=== PATIENT | female | born 1975 | race Caucasian/White ===

== ENCOUNTER 2020-04-09 07:39 | Outpatient (CLI) | payer BC, SELFPAY ==
--- NOTE | ~2020-04-09 | MM_ITS ---
EXAMINATION: MM screening bryce BI w alvarado HISTORY: Screening TECHNIQUE: Craniocaudal and mediolateral oblique 3-D tomosynthesis images were obtained and synthetic 2-D images were generated. CAD analysis was submitted and interpreted. COMPARISON: Comparison to multiple prior studies sequentially, with oldest reviewed study dated 01/2018. BREAST PARENCHYMAL COMPOSITION: The breasts are extremely dense, which lowers the sensitivity of mamm ography. FINDINGS: There is a developing cluster of nonspecific calcifications mid outer aspect of the left br east. The right breast is stable without evidence for malignancy. IMPRESSION: 1. Developing cluster of nonspecific calcifications mid outer aspect of the right breast. 2. Magnification views are recommended. BI-RADS Category 0: Incomplete: Needs additional imaging evaluation. Reviewed, dictated and finalized at location A. IMPRESSION: 1. Developing cluster of nonspecific calcifications mid outer aspect of the rig ht breast. 2. Magnification views are recommended. BI-RADS Category 0: Incomplete: Needs additional imaging evaluation.
== END 2020-04-09 07:40 | disposition home or self-care (01) ==
PROVIDERS: PCP Physician Assistant; Visit Provider Nurse Practitioner
DX: Z12.31 Encounter for screening mammogram for malignant neoplasm of breast (principal); R92.8 Other abnormal and inconclusive findings on diagnostic imaging of breast
CPT/HCPCS: 77063; 77067

== ENCOUNTER → 2020-04-24 07:49 | Outpatient (CLI) | payer BC, SELFPAY ==
--- NOTE | ~2020-04-24 | MM_ITS ---
EXAMINATION: MM diagnostic mammo unilat LT HISTORY: Indeterminate left breast calcifications on screening mammogram TECHNIQUE: Additional images of the left breast were performed using full field digital mammography. CAD analysis was submitted and interpreted. COMPARISON: 04/09/2020, 03/22/2019, 08/12/2018, 02/11/2018, 02/03/2018 FINDINGS: There are grouped calcifications in the posterior third of the breast at the 4:00 location 6 cm from the nipple. The calcifications appear to be amorphous with some pleomorphism. IMPRESSION: 1. Suspicious left breast calcifications. 2. Stereotactic biopsy is recommended. BI-RADS category 4, suspicious findings. Reviewed, dictated and finalized at location A.
== END ==
PROVIDERS: PCP Physician Assistant; Visit Provider Obstetrics & Gynecology Gynecology
DX: R92.8 Other abnormal and inconclusive findings on diagnostic imaging of breast (principal)
CPT/HCPCS: 77065

== ENCOUNTER 2022-09-09 00:17 | Day surgery (SDC) | payer BC, SELFPAY ==
[2022-08-22 13:16] VITALS: BMI 26.0
[2022-09-09 08:23] VITALS: BP 100/61; PULSE 76; RESP 16; TEMP 36.5; O2SAT 98; BMI 24.7
[2022-09-09] MEDS: LACTATED RINGERS 1,000 ML 150 ML IV CONT (08:43)
--- NOTE | 2022-09-09 08:55 | P.PNAN_ITS ---
Anes - Initial Pre Proc Eval Procedure: Operation Date: 09/09/22 09:45 Proposed Procedures p Screening Colonoscopy - Brent Watson MD Date/Time: 09/09/22 08:55 Surgeon: Brent Watson MD Pre Op Diagnosis: neoplasm screening Patient Data Age: 47 Gender: F Height: 1.75 m Weight: 76.1 kg Last Vital Signs Temp 97.7 F 09/09/22 08:23 Pulse 76 09/09/22 08:23 Resp 16 09/09/22 08:23 BP 100/61 09/09/22 08:23 Pulse Ox 98 09/09/22 08:23 O2 Del Method Room Air 09/09/22 08:23 Allergies Allergy/AdvReac Type Severity Reaction Status Date / Time mushroom Allergy Unknown Difficulty Verified 09/09/22 08:29 Breathing Penicillins Allergy Unknown Hives Verified 09/09/22 08:29 Mushroom Allergy Unknown DIFFICULTY Uncoded 09/09/22 08:29 BREATHING Home Medications Medication Instructions Recorded Confirmed Type ascorbic acid (vitamin C) 500 mg 500 mg PO DAILY 07/04/20 09/09/22 History chewable tablet folic acid 1 mg tablet 0.5 mg PO DAILY 07/04/20 09/09/22 History levocetirizine 5 mg tablet 5 mg PO DAILY 07/04/20 09/09/22 History multivitamin with minerals-folic 1 tablet PO DAILY 07/04/20 09/09/22 History acid 0.4 mg tablet (Adult One Daily Multivitamin) tamoxifen 20 mg tablet 20 mg PO DAILY 10/10/20 09/09/22 History cholecalciferol (vitamin D3) 25 25 mcg PO DAILY 08/22/22 09/09/22 History mcg (1,000 unit) tablet (Vitamin D3) levothyroxine 112 mcg tablet 112 mcg PO DAILY 08/22/22 09/09/22 History terbinafine HCl 250 mg tablet 250 mg PO DAILY 08/22/22 09/09/22 History Patient hx anesthesia problems: none Family hx anesthesia problems: none Results Review: All pre-operative results and documents have been reviewed as part of the pre- operative evaluation. [facility] Past Medical History Medical History (Updated 07/30/20 @ 09:55 by Megan Mckenzie, ) Asthma Hypothyroid Family History Family History (Updated 12/01/18 @ 08:47 by DOCTOR UNKNOWN) Grandparent Diabetes mellitus Hypertension Mother Hypertension Other Family history of congenital heart disease Family history of osteoporosis Social History Social History Smoking status: Never smoker Alcohol intake: never Spiritual care concerns: No Anes - Eval Final PreProcedure Day of Procedure 09/09/22 08:55 Patient weight: normal Heart: regular rate and rhythm Lungs: clear to auscultation Airway: Mallampati scale class II Neurological: alert and oriented Last oral intake: >/= 8 hours ASA classification: III Emergent: no Anesthetic plan: proceed Anesthesia type and monitoring: general GIVS and standard monitoring Results Review: All pre-operative results and documents have been reviewed as part of the pre- operative evaluation. Informed Consent: The patient's anesthetic plan and its attendant risks and benefits were discussed with the patient/family/POA. Questions were solicited and answers provided to the satisfaction of the patient/family/POA.
--- NOTE | 2022-09-09 09:32 | PM.HPGS ---
History of Present Illness History of Present Illness Consent: Risks, benefits, and alternatives have been discussed and questions answered. Patient agrees to proceed with procedure. Chief complaint: neoplasm screening Narrative: Amie Luna is a 47 year old female here for first screeing colonoscopy Review of Systems Constitutional: Constitutional: Denies headache(s) and Denies weakness Eyes: Eyes: Denies blurry vision ENT: Reports Normal hearing present, Denies headache(s) and Denies neck pain Cardiovascular: Cardiovascular: Denies chest pain and Denies dyspnea Respiratory: Respiratory: Denies dyspnea Gastrointestinal: Gastrointestinal: Reports no additional gastrointestinal complaints Genitourinary: Genitourinary: Denies dysuria Musculoskeletal: Musculoskeletal: Denies neck pain Integumentary/Breasts: Skin/Breast: Denies dry skin Neurologic: Reports Normal hearing present, Denies headache(s) and Denies weakness Psychiatric: Psychiatric: Denies anxiety Endocrine: Endocrine: Denies change in body appearance Hematologic/Lymphatic: Hematologic/Lymphatic: Denies easy bleeding Allergic/Immunologic: Allergic/Immunologic: Denies urticaria PMFSH Past Medical History Medical History (Updated 09/09/22 @ 09:32 by Brent Watson MD) Asthma Colon cancer screening Hypothyroid Family History Family History (Updated 12/01/18 @ 08:47 by DOCTOR UNKNOWN) Grandparent Diabetes mellitus Hypertension Mother Hypertension Other Family history of congenital heart disease Family history of osteoporosis Social History Social History Smoking status: Never smoker Alcohol intake: never Spiritual care concerns: No Meds Home Medications and Allergies Home Medications Medication Instructions Recorded Confirmed Type ascorbic acid (vitamin C) 500 mg 500 mg PO DAILY 07/04/20 09/09/22 History chewable tablet folic acid 1 mg tablet 0.5 mg PO DAILY 07/04/20 09/09/22 History levocetirizine 5 mg tablet 5 mg PO DAILY 07/04/20 09/09/22 History multivitamin with minerals-folic 1 tablet PO DAILY 07/04/20 09/09/22 History acid 0.4 mg tablet (Adult One Daily Multivitamin) tamoxifen 20 mg tablet 20 mg PO DAILY 10/10/20 09/09/22 History cholecalciferol (vitamin D3) 25 25 mcg PO DAILY 08/22/22 09/09/22 History mcg (1,000 unit) tablet (Vitamin D3) levothyroxine 112 mcg tablet 112 mcg PO DAILY 08/22/22 09/09/22 History terbinafine HCl 250 mg tablet 250 mg PO DAILY 08/22/22 09/09/22 History Allergies Allergy/AdvReac Type Severity Reaction Status Date / Time mushroom Allergy Unknown Difficulty Verified 09/09/22 08:29 Breathing Penicillins Allergy Unknown Hives Verified 09/09/22 08:29 Mushroom Allergy Unknown DIFFICULTY Uncoded 09/09/22 08:29 BREATHING Vital Signs Vital Signs - 24 hr 09/09/22 08:23 Temperature 97.7 F Pulse Rate 76 Respiratory Rate 16 Blood Pressure 100/61 Pulse Oximetry 98 Oxygen Delivery Room Air Exam Const: General: comfortable and no acute distress HENMT: Face/Nose/Sinus: Normal nares present Eyes: General: appearance normal, both eyes and all related structures Neck: Neck: no JVD Resp: Auscultation: clear to auscultation bilaterally Cardio: Rate: regular rate Rhythm: regular rhythm GI: Inspection: non-distended GI Palp: Yes Soft to palpation Skin: General skin exam: normal color Neuro: General: gait normal Speech: normal speech Extrem: General: normal to inspection Psych: Mental Status: mental status grossly normal Assessment and Plan Assessment and plan (1) Colon cancer screening: Code(s): Z12.11 - Encounter for screening for malignant neoplasm of colon Status: Acute Assessment and Plan: colonoscopy
[2022-09-09 09:50] VITALS: BP 87/43; PULSE 63; RESP 16; O2SAT 100
[2022-09-09 10:00] VITALS: BP 94/45; PULSE 55; RESP 14; O2SAT 100
[2022-09-09 10:09] VITALS: BP 88/43; PULSE 56; RESP 18; O2SAT 100
== END 2022-09-09 10:25 | disposition home or self-care (01) ==
PROVIDERS: PCP Physician Assistant; Visit Provider Internal Medicine Gastroenterology
PROC: 0DJD8ZZ Inspection of Lower Intestinal Tract, Via Natural or Artificial Opening Endoscopic (ICD-10-PCS; CPT 45378; principal; 2022-09-09 09:45)
DX: Z12.11 Encounter for screening for malignant neoplasm of colon (principal); K64.8 Other hemorrhoids; E03.9 Hypothyroidism, unspecified
CPT/HCPCS: 45378; J2704; J7120